=== PATIENT | male | born 1950 | race Caucasian/White ===

== ENCOUNTER → 2017-10-24 | Outpatient (REF) ==
[~2017-10-24] MED LIST: IBUP-56 PO; KET10 PO; OXYC-865 PO
== END ==
LOC: AMB 14:48
PROVIDERS: ATTEND Nurse Practitioner
DX: Z02.9 Encounter for administrative examinations, unspecified (principal)

== ENCOUNTER → 2017-10-24 | Outpatient (REF) | LOC: AMB 14:48 | PROVIDERS: ATTEND Nurse Practitioner | DX: Z02.9 Encounter for administrative examinations, unspecified (principal) ==